=== PATIENT | male | born 1965 | race Caucasian/White ===

== ENCOUNTER 2018-03-17 09:18 | Observation (INO) | payer MEDICAID ==
[~2018-03-17] VITALS: Ht 195.6 cm; Wt 108.9 kg
[~2018-03-17 09:18] MED LIST: BAYER CHEWABLE81 MG PO; BUPROPION XL300 MG PO; CARDURA8 MG PO; DIOVAN160 MG PO; HUMIRA20 MG/0.4 SQ; METOPROLOL TART50 MG PO; NEPHRO-VITE RX1 TAB PO; NITROQUICK0.4 MG SL; PARICALCITOL4 MCG PO; PEPCID40 MG PO; PLAQUENIL200 MG PO; PLAVIX75 MG PO; PRAVACHOL40 MG PO; TREXALL7.5 MG PO; ZEMPLAR2 MCG PO; ZYLOPRIM100 MG PO; ZYRTEC10 MG PO; [UNRECOGNIZED DRUG - REMARK]
[2018-03-17] MEDS ORDERED: PACERONE100 MG PO (09:44)
[2018-03-17] MEDS ORDERED: LIORESAL 10 MG10 MG PO (09:46)
[2018-03-17] MEDS ORDERED: BUMEX2 MG PO (09:49)
[2018-03-17] MEDS ORDERED: COUMADIN1 MG PO (09:52)
[2018-03-17] MEDS ORDERED: LIPITOR40 MG PO (09:52)
[2018-03-17] MEDS ORDERED: LONITEN2.5 MG PO (09:53)
[2018-03-17] MEDS ORDERED: METOPROLOL TART50 MG PO (09:53)
[2018-03-17] MEDS ORDERED: COZAAR50 MG (09:53)
[2018-03-17] MEDS ORDERED: RENVELA0.8 GM PO (09:54)
[2018-03-17] MEDS ORDERED: NITROQUICK0.4 MG SL (09:54)
[2018-03-17 10:01] LABS: BASOPHILS 0.4 % (0-2); EOSINOPHILS 7.5 % (0-7); HEMATOCRIT 36.9 % (42.0-54.0); HEMOGLOBIN 12.1 g/dL (13.5-17.5); IMMATURE GRANULOCYTES 0.2 % (0-5); LYMPHOCYTES 11.7 % (15-50); MCH 30.6 pg (26.0-34.0); MCHC 32.8 g/dL (31.0-37.0); MCV 93.4 fL (80.0-100.0); MEAN PLATELET VOLUME 9.7 fL (7.4-10.4); MONOCYTES 5.8 % (2-11); NEUTROPHILS 74.4 % (40-80); RBC 3.95 10x6/uL (4.20-6.10); RDW 14.9 % (11.5-14.5); WBC 10.1 10x3/uL (4.8-10.8)
[2018-03-17 10:02] LABS: PLATELET COUNT 326 10x3/uL (130-400)
[2018-03-17 10:10] LABS: APTT 45.3 SECONDS (22.8-39.4); INR 1.96 (0.85-1.17); PROTIME 21.7 SECONDS (11.6-15.0)
[2018-03-17 10:15] LABS: ALBUMIN 3.9 g/dL (3.4-5.0); ALKALINE PHOSPHATASE 109 U/L (46-116); ALT (SGPT) 17 U/L (10-68); BILIRUBIN - TOTAL 0.44 mg/dL (0.2-1.3); CALC OSMOLALITY 295 mosm/kg (275-300); CALCIUM 10.5 mg/dL (8.5-10.1); CARBON DIOXIDE 27.9 mmol/L (21.0-32.0); CHLORIDE - SERUM 102 mmol/L (98-107); CREATININE - SERUM 6.8 mg/dL (0.6-1.3); GLUCOSE 94 mg/dL (74-106); POTASSIUM - SERUM 4.4 mmol/L (3.5-5.1); PROTEIN - SERUM 8.6 g/dL (6.4-8.2); SODIUM 143 mmol/L (136-145); UREA NITROGEN 42 mg/dL (7-18); eGFR NON AFRICAN AMERICAN 9 mL/min (90-120)
[2018-03-17 10:26] LABS: CREATINE KINASE 57 UL (21-232); MAGNESIUM - SERUM 1.7 mg/dL (1.8-2.4); THYROID STIMULATING HORMONE 0.89 uIU/mL (0.36-3.74); TROPONIN-I 0.032 ng/mL (0.000-0.060)
[2018-03-17 17:37] VITALS: BP 189/115; BMI 28.5
[2018-03-17 19:45] VITALS: BP 105/61
[2018-03-17 23:45] VITALS: BP 128/94
[2018-03-18 03:55] VITALS: BP 129/92
[2018-03-18 05:06] LABS: BASOPHILS 0.6 % (0-2); EOSINOPHILS 9.4 % (0-7); HEMATOCRIT 37.9 % (42.0-54.0); HEMOGLOBIN 12.2 g/dL (13.5-17.5); IMMATURE GRANULOCYTES 0.1 % (0-5); INR 1.78 (0.85-1.17); LYMPHOCYTES 19.6 % (15-50); MCH 30.4 pg (26.0-34.0); MCHC 32.2 g/dL (31.0-37.0); MCV 94.5 fL (80.0-100.0); MONOCYTES 7.8 % (2-11); NEUTROPHILS 62.5 % (40-80); PLATELET COUNT 369 10x3/uL (130-400); PROTIME 20.1 SECONDS (11.6-15.0); RBC 4.01 10x6/uL (4.20-6.10); RDW 15.2 % (11.5-14.5); WBC 9.5 10x3/uL (4.8-10.8)
[2018-03-18 05:21] LABS: ANION GAP 16.9 mmol/L (8-16); CALCIUM 10.1 mg/dL (8.5-10.1); CARBON DIOXIDE 26.2 mmol/L (21.0-32.0); CREATININE - SERUM 8.5 mg/dL (0.6-1.3); MAGNESIUM - SERUM 1.7 mg/dL (1.8-2.4); PHOSPHOROUS 5.8 mg/dL (2.5-4.9); POTASSIUM - SERUM 4.1 mmol/L (3.5-5.1)
[2018-03-18 08:35] VITALS: BP 158/93
[2018-03-18 10:06] VITALS: Ht 195.6 cm; Wt 108.9 kg
[2018-03-18 11:34] VITALS: BP 122/76
[2018-03-18 15:16] VITALS: BP 129/81
[2018-03-18 20:00] VITALS: BP 142/93
[2018-03-18 22:48] LABS: APPEARANCE CLEAR (CLEAR); COLOR YELLOW (YELLOW); NITRITE NEGATIVE (NEGATIVE); PROTEIN TRACE mg/dL (NEGATIVE)
[2018-03-18 22:49] LABS: BILIRUBIN NEGATIVE (NEGATIVE); GLUCOSE NEGATIVE (NEGATIVE); KETONE NEGATIVE (NEGATIVE); UROBILINOGEN NORMAL (NORMAL)
[2018-03-18 22:53] LABS: UDS - AMPHET NEGATIVE QUAL (NEGATIVE); UDS - BARB NEGATIVE QUAL (NEGATIVE); UDS - BENZO NEGATIVE QUAL (NEGATIVE); UDS - COCAINE NEGATIVE QUAL (NEGATIVE); UDS - OPIATE NEGATIVE QUAL (NEGATIVE); UDS - PCP NEGATIVE QUAL (NEGATIVE); UDS - THC NEGATIVE QUAL (NEGATIVE)
[2018-03-19 04:00] VITALS: BP 136/80
[2018-03-19 05:12] LABS: BASOPHILS 0.7 % (0-2); EOSINOPHILS 11.1 % (0-7); HEMATOCRIT 33.2 % (42.0-54.0); HEMOGLOBIN 10.6 g/dL (13.5-17.5); IMMATURE GRANULOCYTES 0.1 % (0-5); LYMPHOCYTES 22.5 % (15-50); MCH 29.9 pg (26.0-34.0); MCHC 31.9 g/dL (31.0-37.0); MCV 93.8 fL (80.0-100.0); NEUTROPHILS 57.6 % (40-80); PLATELET COUNT 307 10x3/uL (130-400); RBC 3.54 10x6/uL (4.20-6.10)
[2018-03-19 05:30] LABS: ANION GAP 17.8 mmol/L (8-16); CARBON DIOXIDE 23.8 mmol/L (21.0-32.0); CREATININE - SERUM 10.4 mg/dL (0.6-1.3); POTASSIUM - SERUM 4.6 mmol/L (3.5-5.1); VANCOMYCIN - RANDOM 4.6 ug/mL (10.0-20.0)
[2018-03-19 09:56] VITALS: BP 146/87
[2018-03-19] MEDS ORDERED: VIBRAMYCIN 100100 MG PO (11:51)
[2018-03-19] MEDS ORDERED: GABAPENTIN100 MG PO (12:10)
== END 2018-03-19 16:22 | disposition home or self-care (01) ==
LOC: D.ER 09:18 → OBSVTIME 11:38 → D.EDHOLD 11:38 → D.M2 11:38 → D.EDHOLD 11:38 → D.M2 16:13
PROVIDERS: Family Medicine; Internal Medicine Nephrology
DX: R41.82 Altered mental status, unspecified (principal); I13.2 Hypertensive heart and chronic kidney disease with heart failure and with stage 5 chronic kidney disease, or end stage renal disease; N18.6 End stage renal disease; I50.9 Heart failure, unspecified; Z99.2 Dependence on renal dialysis; D63.1 Anemia in chronic kidney disease; R62.7 Adult failure to thrive; I48.91 Unspecified atrial fibrillation; E78.5 Hyperlipidemia, unspecified; M45.9 Ankylosing spondylitis of unspecified sites in spine

== ENCOUNTER 2018-07-08 05:50 | Day surgery (SDC) | payer MEDICAID ==
[2018-07-07 13:17] LABS: BASOPHILS 0.8 % (0-2); EOSINOPHILS 8.6 % (0-7); HEMATOCRIT 32.3 % (42.0-54.0); HEMOGLOBIN 10.5 g/dL (13.5-17.5); IMMATURE GRANULOCYTES 0.3 % (0-5); LYMPHOCYTES 16.5 % (15-50); MCH 31.4 pg (26.0-34.0); MCHC 32.5 g/dL (31.0-37.0); MCV 96.7 fL (80.0-100.0); MEAN PLATELET VOLUME 10.1 fL (7.4-10.4); MONOCYTES 10.5 % (2-11); NEUTROPHILS 63.3 % (40-80); PLATELET COUNT 350 10x3/uL (130-400); RBC 3.34 10x6/uL (4.20-6.10); RDW 17.8 % (11.5-14.5); WBC 9.9 10x3/uL (4.8-10.8)
[2018-07-07 13:26] LABS: INR 0.92 (0.85-1.17); PROTIME 11.9 SECONDS (11.6-15.0)
[2018-07-07 13:29] LABS: ANION GAP 11.1 mmol/L (8-16); CALCIUM 9.8 mg/dL (8.5-10.1); CARBON DIOXIDE 29.4 mmol/L (21.0-32.0); CREATININE - SERUM 4.9 mg/dL (0.6-1.3); POTASSIUM - SERUM 3.5 mmol/L (3.5-5.1)
[~2018-07-08] VITALS: Ht 195.6 cm; Wt 111.1 kg
[~2018-07-08 05:50] MED LIST changes: +BUMEX2 MG PO; +COUMADIN1 MG PO; +COZAAR50 MG PO; +GABAPENTIN100 MG PO; +LIORESAL 10 MG10 MG PO; +LIPITOR40 MG PO; +LONITEN2.5 MG PO; +OMEPRAZOLE40 MG PO; +PACERONE100 MG PO; +PROTONIX20 MG PO; +RENVELA0.8 GM PO; +SENSIPAR60 MG PO; +VIBRAMYCIN 100100 MG PO
[2018-07-08 06:40] VITALS: Ht 195.6 cm; Wt 111.1 kg
--- NOTE | 2018-07-08 08:59 | NUR ---
CALLED DR. FONTAINE AND MACARENA NURSE AT 0840 TOLD THEM WE WERE READY, THEY SAID THEY WERE ON THEIR WAY. DID NOT GET TO ROOM TIL [phone].
[2018-07-08] MEDS ORDERED: HYDROCODON-ACE1 EAC7 PO (11:29)
--- NOTE | 2018-07-08 13:07 | NUR ---
IV DC'D PRESSURE DRESSING APPLIED
--- NOTE | 2018-07-11 17:27 | OP ---
PATIENT NAME: MILDRED RYAN MEDICAL RECORD: [id number] :67 LOCATION:[facility] ADMISSION DATE: SURGEON: SRINIVAS FONTAINE MD DATE OF OPERATION: 07/08/2018 PREOPERATIVE DIAGNOSIS: End-stage renal disease, dependence on hemodialysis. POSTOPERATIVE DIAGNOSIS: End-stage renal disease, dependence on hemodialysis. OPERATION PERFORMED: Creation of a left wrist Ankita-type radiocephalic AV fistula and laparoscopic implantation of peritoneal dialysis catheter with laparoscopic lysis of adhesions. SURGEON: Srinivas Fontaine MD ANESTHESIA: General endotracheal and regional nerve block per ELEMENTARY INSTRUCTIONAL COACH. PREOPERATIVE NOTE: Mr. Ryan is a very nice 52-year-old white male on hemodialysis, who needs long-term access. He is presently dialyzing with a right IJ TDC. He dialyzes at [facility]. He was referred by Dr. Junior and Dr. Cabello. DESCRIPTION OF PROCEDURE: Under anesthesia in supine position and after a block had been administered, the patient was prepped and draped in sterile manner. I examined him using a duplex ultrasound with a Pramod drain as a proximal venous tourniquet and after application of topical nitroglycerin. He had a good vein and radial artery at the wrist and I elected to go ahead with the Ankita procedure. A longitudinal incision was made at the wrist and the artery and vein dissected from surrounding structures. The vein was ligated distally, transected and bevelled and flushed with heparinized saline. It was treated with topical papaverine and hydrostatically dilated. The artery was controlled with Silastic loops. It was occluded and then opened and through the arteriotomy, the artery was flushed proximally and distally with heparinized saline. An end-to-side that is end of vein to side of artery anastomosis was then performed with running 7-0 Prolene and when completed, the suture line was hemostatic and excellent flow developed immediately within the fistula. This was pulsatile and continuous and the palpable thrill extended up the forearm. The wound was irrigated with Ancef/gentamicin solution and then closed with interrupted 3-0 Vicryl and then running intracuticular 4-0 Monocryl and Dermabond glue and a dressing of Maxorb Ag, Tegaderm, and Cavilon skin prep was applied. The patient's arm was then tucked to his side and the abdomen exposed. It had already been prepped and draped, the abdomen was accessed through an incision in the left upper quadrant with a 5 mm Optiview XL type port. A 5-mm 0-degree laparoscope was used initially and then that was exchanged for a 30-degree angled scope. Pneumoperitoneum was developed with carbon dioxide. The patient was found to have adhesions in the right lower quadrant, I believe from prior appendicitis and appendectomy. I placed 2 more 5 ports on the left and used the harmonic pj to lyse adhesions. The patient was placed in a steep Trendelenburg position and the bowel delivered from the pelvis and I found there were no significant adhesions actually within the true pelvis. There were no hernias seen. I selected a Medcomp brand dual cuff swan neck coil dialysis catheter and measured from the symphysis pubis up the midline of the abdomen and established a site, which was actually just above the umbilicus where the catheter should be inserted on the deepest cuff set beneath the anterior rectus sheath. I made an incision adjacent to the umbilicus and at the specific point OPERATIVE REPORT [id number] MILDRED RYAN identified by measuring with the catheter itself. I inserted an introducer needle and passed this within the substance of the rectus muscle and anterior to the peritoneum really as far inferiorly as the needle would reach and then pushed it into the peritoneal space. A guidewire was inserted, which was directed down into the pelvis. A dilator peel-away sheath was inserted over the wire and lastly the right side Medcomp dual cuff swan neck coil dialysis catheter was inserted and it was positioned in the upper pelvis and what I thought was a very good position. I did note that there was a lot of stool in the distal sigmoid colon and in the cecum, which I could see in the future that could be a problem with his peritoneal dialysis if his constipation is not treated aggressively. The catheter was placed in a laterally directed tunnel with a separate exit site. The catheter was flushed and then 500 cc of saline were pushed through the catheter and the catheter was then drained and it drained essentially all of the fluid. It was then heparin locked, clamped, and capped. The ports were removed and the wounds infiltrated with 0.25% Marcaine. The incision was closed with interrupted inverted 3-0 Vicryl and running intracuticular 4-0 Monocryl and Dermabond glue. The port sites were closed with interrupted inverted 3-0 Vicryl and Dermabond glue and all these incisions were dressed with Maxorb Ag, Tegaderm, and Cavilon skin prep. The catheter exit site was dressed with hexachlorophene Biopatch and the catheter coiled and placed under a Medipore dressing. The patient was then awakened and with a very good fistula function noted was taken to the recovery room. Blood loss during the operation was 5 cc. None was replaced. Sponges, instruments, and needles were accounted for. No drain was used and no surgical specimen was submitted for histopathology. PLAN: The patient will resume his home medications and diet. He will continue his same dialysis schedule at [facility]. He is to have his catheter flushed, I believe, on of next week and he will be made an appointment to return to see me in my office next week. TRANSINT:[id number] Voice Confirmation ID: [id number] DOCUMENT ID: [id number] cc: [facility] [id number] SRINIVAS FONTAINE MD at [id number] CC: MADI CABELLO MD and MEGHANA JUNIOR MD [id number] DICTATION DATE: 07/08/18 1416 [facility]F: 07/08/18 1436 [facility] 07/08/18 [facility] [address] [place] [address]
== END 2018-07-08 13:30 | disposition home or self-care (01) ==
LOC: D.OPS 05:50
PROVIDERS: Surgery; ATTEND Internal Medicine Nephrology
DX: I12.0 Hypertensive chronic kidney disease with stage 5 chronic kidney disease or end stage renal disease (principal); N18.6 End stage renal disease; Z99.2 Dependence on renal dialysis; I48.91 Unspecified atrial fibrillation; Z01.812 Encounter for preprocedural laboratory examination